=== PATIENT | female | born 1990 | race Caucasian/White ===

== ENCOUNTER 2019-05-16 18:31 | Emergency (ER) | payer OTHER ==
[2019-05-16 18:45] VITALS: BMI 29.7
--- NOTE | 2019-05-16 20:40 | PDOC ---
Documentation entered by Misty Richter SCRIBE, acting as scribe for Robin Nash MD. Robin Nash MD: This documentation has been prepared by the Rober delgado Adrianna, SCRIBE, under my direction and personally reviewed by me in its entirety. I confirm that the documentation accurately reflects all work, treatment, procedures, and medical decision making performed by me. History of Present Illness - General Chief Complaint: Chest Pain Stated Complaint: CHEST DISCOMFORT INTERMITTENT FOR 1 WEEK ANXIETY History Source: Patient Exam Limitations: No Limitations - History of Present Illness Initial Comments: The patient is a 28 year old female, with no significant PMH, presents to the ED for evaluation of chest pain for one week. Patient notes that she developed sudden onset substernal chest pain last week while at rest. She describes the chest pain as sharp, intermittent, and occasionally radiates to the left side of the chest or into her flank and back. Patient denies any aggravating or alleviating factors. She endorses some associated SOB, which she notes she feels when she is anxious. Patient states she saw an [employer] for this complaint and was told it was anxiety (advised to go to ER if symptoms persist). She notes she has had multiple episodes of chest pain since the initial presentation, which she attributes to being anxious and stressed recently. Patient denies any current chest pain or SOB while in the ED. PAST MEDICAL HISTORY: no significant history PAST SURGICAL HISTORY: no significant history FAMILY HISTORY: Grandmother passed at 77 from a pulmonary embolism. SOCIAL HISTORY: Pt lives with family and is employed. Social EtoH use. Marijuana use. MEDICATIONS: reviewed ALLERGIES: As per nursing notes ROS General: +Anxious and stressed. No fevers or chills, no weakness, no weight loss HEENT: No change in vision. No sore throat,. No ear pain CardioVascular: +Substernal chest pain. +SOB (when anxious). Respiratory: No cough, or wheezing. Gastrointestinal: no nausea, vomiting, diarrhea or constipation, No rectal bleeding Genitourinary: No dysuria, hematuria, or frequency Musculoskeletal: No joint or muscle pain or swelling Neurologic: No headache, vertigo, dizziness or loss of consciousness Psychiatric: nor depression Skin: No rashes or easy bruising Endocrine: no increased thirst or abnormal weight change Allergic: no skin or latex allergy All other systems reviewed and normal Physical Exam: General: Well-nourished well-developed individual, no acute distress HEENT: Throat: Normal, tonsils normal, no erythema or exudate Neck: Supple, no meningeal signs, no lymphadenopathy Eyes::Pupils equal reactive and round, extraocular motion intact Chest: Nontender to palpation Cardiac: S1-S2 normal, regular rate and rhythm, no murmurs rubs or gallops Respiratory: Lungs clear to auscultation bilateral Extremities: Warm, dry, no cyanosis, clubbing, or edema Skin: No rashes Neuro: Alert and oriented x3, nonfocal exam, grossly intact, normal gait Psych: +Anxious appearing. Normal mood and affect 05/16/19 20:38 Assessment and plan: This is a 28-year-old female who comes in complaining of chest tightness, chest pain, intermittent shortness of breath times several weeks. Patient has a lot of stressors in her life and is quite anxious here in the ED. Patient did see her primary care doctor about a week ago had a normal EKG and was told that it is stress. However on evaluation patient does have a maternal grandmother who recently of a massive pulmonary embolism. Otherwise there is no family history of PE. Patient occasionally smokes weed and is not on oral contraceptives. Patient had d-dimer drawn and sent. The d- dimer was elevated so patient had a CT angios of the chest. The CT Annabel of the chest was negative for any blood clots however it did show a nodule of significant size in her left lower lobe. Patient was given a copy of the CAT scan and the nodule was discussed with her. I recommended that she follow-up with her primary care doctor and arrange for further evaluation and follow-up Past History - Past Medical History Allergies/Adverse Reactions: Allergies Allergy/AdvReac Type Severity Reaction Status Date / Time No Known Allergies Allergy Unverified 05/16/19 18:35 Home Medications: Ambulatory Orders NK [No Known Home Medication] 05/16/19 COPD: No Other medical history: DENIES - Psycho Social/Smoking Cessation Hx Smoking History: Never smoked Information on smoking cessation initiated: No Hx Alcohol Use: Yes (SOCIAL) Drug/Substance Use Hx: Yes (MARIJUANA) *Physical Exam - Vital Signs Last Vital Signs Temp Pulse Resp BP Pulse Ox 97.9 F 88 16 119/78 100 05/16/19 18:33 05/16/19 18:33 05/16/19 18:33 05/16/19 18:33 05/16/19 18:33 ED Treatment Course - LABORATORY CBC & Chemistry Diagram: 05/16/19 22:15 05/16/19 22:15 Discharge - Discharge Information Problems reviewed: Yes Clinical Impression/Diagnosis: Chest pain, atypical Condition: Stable Disposition: HOME - Admission No - Follow up/Referral - Patient Discharge Instructions Additional Instructions: Your CAT scan was negative for a pulmonary embolism however it did show a nodule in your lung that needs to be further evaluated and followed up. Take a copy of the CAT scan with you to your primary care doctor It is important that you follow-up with a therapist for help with your anxiety and stress Return to the emergency department immediately with ANY new, persistent or worsening symptoms. Continue any medications as previously prescribed by your physician. You should follow up with your primary doctor as soon as possible regarding today's emergency department visit. . Please make sure your doctor reviews the results of your emergency evaluation. Thank you for coming to the Emergency Department today for your care. It was a pleasure to see you today. Please note that your evaluation is INCOMPLETE until you follow-up with your doctor. - Post Discharge Activity
[2019-05-16 22:22] VITALS: BP 123/89; PULSE 90; TEMP 98.2
[2019-05-16 22:35] LABS: BASO % 0.4 % (0-2.0); EOS % 4.3 % (0-4.5); HEMATOCRIT 41.5 % (32.4-45.2); HEMOGLOBIN 13.6 GM/dl (10.7-15.3); LYMPH % 24.7 % (8-40); MCH 28.3 pg (25.7-33.7); MCHC 32.8 g/dl (32.0-36.0); MEAN CELL VOLUME 86.3 fl (80-96); MEAN PLT VOLUME 8.1 fl (7.5-11.1); MONO % 5.3 % (3.8-10.2); NEUT % 65.3 % (42.8-82.8); PLATELET COUNT 376 K/MM3 (134-434); RBC 4.81 M/mm3 (3.60-5.2); RDW 12.9 % (11.6-15.6); WHITE BLOOD COUNT 11.1 K/mm3 (4.0-10.8)
[2019-05-16 22:43] LABS: INR 1.23 (0.82-1.09); PROTHROMBIN TIME (PATIENT) 13.7 SEC (10.2-13.0)
[2019-05-16 22:48] LABS: ALBUMIN 4.2 g/dl (3.4-5.0); BILIRUBIN,TOTAL 0.4 mg/dl (0.2-1); CALCIUM 8.6 mg/dl (8.5-10); CREATININE 0.8 mg/dl (0.55-1.3); POTASSIUM 3.1 mmol/L (3.5-5.1)
--- NOTE | 2019-05-17 14:35 | EKG ---
Test Reason : Blood Pressure : / mmHG Vent. Rate : 077 BPM Atrial Rate : 077 BPM P-R Int : 162 ms QRS Dur : 074 ms QT Int : 394 ms P-R-T Axes : 048 021 043 degrees QTc Int : 445 ms NORMAL SINUS RHYTHM NORMAL ECG Confirmed by MD TAO GREGORY ([id number]) on 05/17/2019 2:35:17 PM Referred By: MD CHÁVEZ Confirmed By:SALAS TAO MD
== END 2019-05-17 00:51 | disposition home or self-care (01) ==
LOC: FER 18:31
DX: R07.89 Other chest pain (principal)
CPT/HCPCS: 36415; 71275-TC; 80053; 85025; 85379; 85610; 93005; 99283-25; Q9967